=== PATIENT | male | born 1935 | race Caucasian/White ===

== ENCOUNTER 2018-10-30 12:38 | Emergency (ER) | payer MEDICARE, MEDICAID ==
[~2018-10-30] VITALS: Ht 170.2 cm; Wt 72.6 kg
[2018-10-30 12:40] VITALS: BP 127/63
--- NOTE | 2018-10-30 12:40 | NUR ---
ED Nurse Note: pt brought by RA from [facility] due to fall injury about 1 hr ago. per pt, standing to the floor to change the cloth and fell on left hip. does not remember what cause the fall. denies any dizzyincess or LOC. denies any head injury. AAO x4. respirations even and non-labored noted. ambulatory with walker normally. no limited ROM noted. skin warm to touch. dressing noted on left lower leg. per pt, "skin broken" will wait for the further order.
--- NOTE | 2018-10-30 12:56 | Emergency Room Report ---
History of Present Illness General Chief Complaint: Multiple Trauma/Fall Source: Medical Record Present Illness HPI Disclaimer: Please note that this report is being documented using [employer] technology. This can lead to erroneous entry secondary to incorrect interpretation by the dictating instrument. HPI: 83-year-old male with history of hypertension, hyperlipidemia, BPH presents for evaluation after a fall from standing complaining of left hip pain. The patient states he was changing his shirt and when he raised his arms over his head he lost his balance falling onto his left side. He notes pain in the left hip but is able to move the leg. Denies pain in the thigh or the knee. Denies head injury, loss of conscious, neck or back pain. He denies chest pain, shortness of breath or abdominal pain. Denies syncope. He normally ambulates with the use of a walker. PMH: Hypertension, hyperlipidemia, BPH PSH: Bilateral hip replacement Allergies: Denies Social Hx: Denies drug or alcohol abuse Allergies: Coded Allergies: No Known Allergies (Verified , 03/09/08) Nursing Documentation-PMH Past Medical History: No History, Except For Hx Hypertension: Yes Review of Systems All Other Systems: negative except mentioned in HPI Physical Exam Vital Signs Date Time Temp Pulse Resp B/P (MAP) Pulse Ox O2 Delivery O2 Flow Rate FiO2 10/30/18 12:31 98.2 59 18 140/73 (95) 98 Room Air General: Awake and alert, no acute distress HEENT: NC/AT. No scalp or face hematomas, lacerations or abrasions. EOMI. Chest Wall: No tenderness, no deformity, clavicles are anatomic position, no deformity, no tenderness Cardiovascular: RRR. S1 and S2 normal. No murmur appreciated Resp: Normal work of breathing. No cough, wheezing or crackles appreciated Abdomen: Abdomen is soft, nondistended. Nontender Skin: Intact. No abrasions, laceration or rash over the exposed skin MSK: Normal tone and bulk. Moving all extremities. No obvious deformity. Pelvis is stable. No significant tenderness on AP or lateral compression. There is tenderness over the left inferior ramus. No deformity. No tenderness or deformity in the femurs, knees, tib-fib or ankles. Note injury in the upper extremities with full range of motion. Neuro: Awake and alert. Mentating appropriately. Back/Spine: No midline tenderness in the cervical, thoracic or lumbosacral spine. Medical Decision Making Diagnostic Impression: Primary Impression: Contusion, hip Qualified Codes: S70.02XA - Contusion of left hip, initial encounter ER Course 83-year-old male presents for evaluation after a fall from standing complaining of left hip pain. Differential includes was not limited to hip dislocation, hip fracture, femur fracture, periprosthetic fracture, ramus fracture. Will obtain x-rays of the hip and pelvis. The patient is otherwise stable and denies significant pain at this time. Other X-Ray Diagnostic Results Other X-Ray Diagnostic Results : X-Ray ordered: Left hip with pelvis # of Views/Limited Vs Complete: Complete Indication: Pain EP Interpretation: Yes Interpretation: no dislocation, no soft tissue swelling, no fractures Impression: No acute disease Electronically Signed by: Electronically signed by Dr. Benson Branham Reevaluation Time: 14:11 Last Vital Signs Date Time Temp Pulse Resp B/P (MAP) Pulse Ox O2 Delivery O2 Flow Rate FiO2 10/30/18 12:31 98.2 59 18 140/73 (95) 98 Room Air Reevaluation Impression No obvious fracture, hardware malfunction, dislocation or other pathology seen on hip and pelvis x-rays. Patient likely has a contusion over the inferior ramus after his fall. We will treat with NSAIDs as an outpatient and follow-up with his PMD. We discussed reasons to return to the emergency department. Understands and agrees with treatment plan. Disposition: ASSISTED LIVING Condition: Stable Benson Branham MD Oct 30, 2018 12:56
--- NOTE | 2018-10-30 14:44 | Diagnostic Imaging Report ---
Indication: Reason For Exam: INJ Technique: 2 views of the left hip, one view the pelvis Comparison: none Findings: Surgical hardware is seen reducing old healed intertrochanteric fractures. The hardware appears intact and well aligned. No acute fractures. No dislocations. The joint spaces are preserved. The bones are osteoporotic. Impression: Posttraumatic and postsurgical changes, as described. No acute bony trauma
--- NOTE | 2018-10-30 15:18 | NUR ---
ED Nurse Note: pt transferred to [facility] by [id number]
[2018-10-30 15:19] VITALS: BP 148/82
== END 2018-10-30 15:21 | disposition home or self-care (01) ==
LOC: EDBD 12:38 → EMR 14:05
DX: S70.02XA Contusion of left hip, initial encounter (principal); I10 Essential (primary) hypertension; E78.5 Hyperlipidemia, unspecified; N40.0 Benign prostatic hyperplasia without lower urinary tract symptoms; W18.39XA Other fall on same level, initial encounter; Y92.099 Unspecified place in other non-institutional residence as the place of occurrence of the external cause
CPT/HCPCS: 73502; 99283